=== PATIENT | female | born 1980 | race Caucasian/White ===

== ENCOUNTER 2021-06-08 12:34 | Emergency (ER) | payer MEDICAID ==
[~2021-06-08] VITALS: Ht 182.9 cm; Wt 68.5 kg
[2021-06-08 12:34] VITALS: BP 111/72
--- NOTE | 2021-06-08 12:40 | NUR ---
BIB SELF C/O SORE THROAT STARTED YESTERDAY. OXYGEN SATURATION LEVEL IN ROOM AIR IS AT 99%. IN ROOM AIR AND DENIES SOB. RESPIRATION REGULAR AND UNLABORED. WILL CONTINUE TO MONITOR THE PATIENT.
--- NOTE | 2021-06-08 12:55 | NUR ---
RAPID GROUP STREP SWAB DONE AND SENT TO LAB
--- NOTE | 2021-06-08 12:56 | NUR ---
COVID-19 RAPID AND PCR SWAB DONE AND SENT TO LAB
[2021-06-08] MEDS ORDERED: AMOX500C2 PO (13:13)
[2021-06-08] MEDS ORDERED: predniSONE 20 MG TABLET ONE (13:16)
[2021-06-08] MEDS ORDERED: AMOXICILLIN TRIHYDRATE 250 MG CAPSULE ONE (13:16)
--- NOTE | 2021-06-08 13:19 | NUR ---
Patient discharged to home in stable condition. Written and verbal after care instructions given. Patient verbalizes understanding of instruction.
[2021-06-08] MEDS ORDERED: predniSONE 20 MG TABLET PO ONE (13:30)
[2021-06-08] MEDS ORDERED: AMOXICILLIN TRIHYDRATE 500 MG CAPSULE PO ONE (13:30)
== END 2021-06-08 13:40 | disposition home or self-care (01) ==
LOC: ER 12:37
DX: J03.90 Acute tonsillitis, unspecified (principal); Z20.822 Contact with and (suspected) exposure to COVID-19
CPT/HCPCS: 87070; 87426; 87880; 99283; C9803; J7512; U0003; 86403-TC